=== PATIENT | female | born 1995 | race Caucasian/White ===

== ENCOUNTER 2019-12-19 19:37 | Emergency (ER) | payer BC ==
[2019-12-19] MEDS ORDERED: cefTRIAXone 1 GM Vial IM ONE (20:20)
[2019-12-19] MEDS ORDERED: Amoxicillin 500 MG Cap PO SCH (20:30)
[2019-12-19] MEDS ORDERED: cefTRIAXone 1 GM Vial ONE (20:32)
--- NOTE | 2019-12-19 20:34 | EDM.PDOC ---
ED HPI GENERAL MEDICAL PROBLEM - General Chief Complaint: Genitourinary Problem Stated Complaint: UTI Time Seen by Provider: 12/19/19 19:45 Source of Information: Reports: Patient History Limitations: Reports: No Limitations - History of Present Illness INITIAL COMMENTS - FREE TEXT/NARRATIVE: 24-year-old female presents with complaints of hematuria, dysuria and urinary frequency that has been going on since . She initially noticed hematuria and began experiencing increasing dysuria and urinary frequency the following day. She is currently breast-feeding. She is from [place]. [place] near [place]. She's had urinary tract infections in the past. She's no cylindrical bit of cramping in her lower back. She denies any fever or chills. She did try cranberry juice yesterday without relief. Onset: Gradual Onset Date: 12/17/19 Duration: Day(s):, Getting Worse Location: Reports: Back Quality: Reports: Ache Severity: Moderate Improves with: Reports: None Worsens with: Reports: None Associated Symptoms: Denies: Fever/Chills, Nausea/Vomiting - Related Data Allergies Allergy/AdvReac Type Severity Reaction Status Date / Time azithromycin Allergy Diarrhea Verified 12/19/19 19:50 [From Zithromax Z-Shyam] cefprozil [From Cefzil] Allergy Cannot Verified 12/19/19 19:50 Remember Home Meds: Home Meds . [No Known Home Meds] 12/19/19 [History] ED ROS GENERAL - Review of Systems Review Of Systems: Comprehensive ROS is negative, except as noted in HPI. ED EXAM, GI/ABD - Physical Exam Exam: See Below Exam Limited By: No Limitations General Appearance: Alert, No Apparent Distress, Obese Ears: Hearing Grossly Normal Nose: Normal Inspection Throat/Mouth: Normal Voice, No Airway Compromise Respiratory/Chest: No Respiratory Distress Back Exam: Normal Inspection Extremities: Normal Inspection Neurological: Alert, Oriented, No Motor/Sensory Deficits Psychiatric: Normal Affect, Normal Mood Skin Exam: Warm, Dry, Intact Lymphatic: No Adenopathy Course - Vital Signs Last Recorded V/S: Last Vital Signs Temp 98.5 F 12/19/19 19:50 Pulse 86 12/19/19 19:50 Resp 20 12/19/19 19:50 BP 166/94 H 12/19/19 19:50 Pulse Ox 100 12/19/19 19:50 - Orders/Labs/Meds Orders: Active Orders 24 hr Category Date Time Status Amoxicillin [Amoxil] Med 12/19/19 20:30 Ordered 2,000 mg PO Q12HR Medication Orders Amoxicillin (Amoxil) 2,000 mg PO Q12HR LISSY Labs: Laboratory Tests 12/19/19 Range/Units 19:41 Specimen Type Urincc Urine Color Light yellow (YELLOW) Urine Appearance Clear (CLEAR) Urine pH 7.0 (5.0-9.0) Ur Specific [place] 1.015 (1.005-1.030) Urine Protein 30 H (NEGATIVE) mg/dL Urine Glucose (UA) Negative (NEGATIVE) mg/dL Urine Ketones Negative (NEGATIVE) mg/dL Urine Occult Blood Moderate H (NEGATIVE) Urine Nitrite Negative (NEGATIVE) Urine Bilirubin Negative (NEGATIVE) Urine Urobilinogen 0.2 (0.2-1.0) E.U./dL Ur Leukocyte Esterase Moderate H (NEGATIVE) Urine RBC 5-10 H (0-5) /HPF Urine WBC Packed (0-5) /HPF Ur Epithelial Cells Few /LPF Urine Bacteria Few (NONE TO FEW) /HPF Meds: Medications Generic Name Dose Route Start Last Admin Trade Name Freq PRN Reason Stop Dose Admin Amoxicillin 2,000 mg 12/19/19 20:30 Amoxil PO Q12HR LISSY Discontinued Medications Generic Name Dose Route Start Last Admin Trade Name Freq PRN Reason Stop Dose Admin Ceftriaxone Sodium 1 gm 12/19/19 20:20 Rocephin IM 12/19/19 20:21 ONETIME ONE Departure - Departure Time of Disposition: 20:32 Disposition: Home, Self-Care 01 Condition: Good Clinical Impression: UTI, Urinary tract infectious disease - Discharge Information Instructions: Urinary Tract Infection, Adult, [id number] Referrals: PCP,Not In Area [Primary Care Provider] - Forms: ED Department Discharge Sepsis Event Note (ED) - Evaluation Sepsis Screening Result: No Definite Risk - Focused Exam Vital Signs: Vital Signs Temp Pulse Resp BP Pulse Ox 12/19/19 19:50 98.5 F 86 20 166/94 H 100 - My Orders Last 24 Hours: My Active Orders 12/19/19 20:30 Amoxicillin [Amoxil] 2,000 mg PO Q12HR - Assessment/Plan Last 24 Hours: My Active Orders 12/19/19 20:30 Amoxicillin [Amoxil] 2,000 mg PO Q12HR Assessment:: 1. UTI 2. Currently breast-feeding Plan: 1. Patient is complaining of a symptoms consistent with urinary tract infection this is confirmed by her UA. She is currently breast-feeding emboli to avoid antibiotics that would interact with breast-feeding. She is requesting amoxicillin. I discussed with amoxicillin is not usually the first line of treatment and has a high resistance rate. We'll give her an IM injection of Rocephin and then begin amoxicillin 500 mg twice a day. I asked that she follow- up with her primary care early next week for follow-up with her urinary cultures that will be taken and to make sure that this is appropriate antibiotic that is not shown resistance. I encourage her to continue to drink plenty of water and she may continue the use of the cranberry juice. She did state that she gets yeast infection typically when she does take amoxicillin and that she has something that she can take for her yeast infection at this occurs
== END 2019-12-19 20:45 | disposition home or self-care (01) ==
LOC: KA.ED 19:37
DX: N39.0 Urinary tract infection, site not specified (principal); Z88.1 Allergy status to other antibiotic agents
CPT/HCPCS: 81001; 87086; 87088; 87186; 96372; 99283; A9270-GY; J0696